=== PATIENT | male | born 1945 | race Caucasian/White ===

== ENCOUNTER 2017-10-31 09:14 | Day surgery (SDC) | payer OTHER ==
[2017-10-26 12:33] VITALS: BMI 25.8
[2017-10-31] MEDS ORDERED: PROPOFOL 20 ML ONE ×2 (09:28)
[2017-10-31 12:14] VITALS: BP 104/61; PULSE 61; TEMP 98.3
== END 2017-10-31 12:05 | disposition home or self-care (01) ==
LOC: FASU-ENDO 09:14
PROVIDERS: ATTEND Internal Medicine Gastroenterology
PROC: 0DJD8ZZ Inspection of Lower Intestinal Tract, Via Natural or Artificial Opening Endoscopic (ICD-10-PCS; principal; 2017-10-31 11:15)
DX: Z86.010 Personal history of colon polyps (principal)